=== PATIENT | female | born 1945 | race Caucasian/White ===

== ENCOUNTER 2023-01-17 05:03 | Inpatient (IN) ==
[2023-01-07 13:18] LABS: Basophils # (Auto) 0.06 K/mcL (0.00-0.30); Basophils % (Auto) 1.1 % (0.0-2.0); Eosinophils # (Auto) 0.14 K/mcL (0.00-0.70); Eosinophils % (Auto) 2.6 % (0.0-7.0); Hematocrit 41.6 % (34.1-44.9); Hemoglobin 13.8 g/dL (11.2-15.7); Lymphocytes # (Auto) 1.65 K/mcL (1.50-4.80); Lymphocytes % (Auto) 30.3 % (15.5-49.0); Mean Cell Volume 98.8 fL (80.0-100.0); Mean Corpuscular HGB Conc 33.2 g/dL (31.0-36.0); Mean Platelet Volume 10.5 fL (8.8-12.5); Monocytes # (Auto) 0.54 K/mcL (0.10-0.90); Monocytes % (Auto) 9.9 % (1.0-12.0); Neutrophils % (Auto) 55.9 % (38.0-78.0); Platelet Count 200 K/mcL (140-440); RBC 4.21 M/mcL (3.59-5.38); Red Cell Distribution Width 14.1 % (11.5-14.5); WBC 5.4 K/mcL (4.5-11.0)
[2023-01-07 13:28] LABS: Prothrombin Time 13.2 sec (11.9-14.5)
[2023-01-07 13:48] LABS: ALT/SGPT 18 U/L (<40); AST/SGOT 17 U/L (<32); Albumin 4.2 gm/dL (3.2-5.2); Albumin/Globulin Ratio 1.8 (1.0-2.3); Alkaline Phosphatase 51 U/L (39-117); Bilirubin,Total 0.3 mg/dL (0.1-1.0); Blood Urea Nitrogen 20 mg/dL (8-23); Calcium 9.5 mg/dL (8.6-10.4); Carbon Dioxide 25 mmol/L (22-30); Chloride 107 mmol/L (96-108); Globulin 2.4 gm/dL (2.2-3.7); Glomerular Filtration Rate 71; Glucose 88 mg/dL (70-105)
[2023-01-07 16:20] LABS: Appearance,Urine CLEAR (Clear); Bilirubin,Urine Negative (Negative); Color,Urine STRAW; Culture Indicated,Urine No; Glucose,Urine (UA) Negative (Negative); Ketones,Urine Negative (Negative); Leukocyte Esterase,Urine Negative /uL (Negative); Nitrate,Urine Negative (Negative); Protein,Urine Negative (Negative); Specific Gravity,Urine 1.008 (1.000-1.035); Urine Blood Negative (Negative); Urobilinogen,Urine Negative
[~2023-01-17 05:03] MED LIST: 0.9 % SODIUM CHLORIDE 250 ML IV SCH; SCOPOLAMINE 1 PATCH PATCH TOPICAL PRN
[2023-01-17] MEDS ORDERED: ceFAZolin 2 GM in DEXTROSE 5% IN WATER 50 ML IV SCH (06:00)
[2023-01-17] MEDS ORDERED: ROCURONIUM 10 MG/ML ML IV ONE (07:07)
[2023-01-17] MEDS ORDERED: LIDOCAINE 2% PF 5 ML VIAL ONE (07:07)
[2023-01-17] MEDS ORDERED: SUCCINYLCHOLINE 20 MG/ML ML IV ONE (07:07)
[2023-01-17] MEDS ORDERED: PHENYLephrine 1 MG/10 ML SYRINGE (ANEST) ONE (07:07)
[2023-01-17] MEDS ORDERED: DEXAMETHASONE 10 MG/ML VIAL ONE (07:08)
[2023-01-17] MEDS ORDERED: KETOROLAC 30 MG/ML VIAL ONE (07:08)
[2023-01-17] MEDS ORDERED: ONDANSETRON 4 MG/2 ML VIAL ONE (07:08)
[2023-01-17] MEDS ORDERED: PROPOFOL 200 MG/20 ML VIAL IV ONE (07:08)
[2023-01-17] MEDS ORDERED: CARBOXYMETHYLCELLULOSE SODIUM 1 EACH DROPER.GEL ONE (07:08)
[2023-01-17] MEDS ORDERED: TRANEXAMIC ACID 1,000 MG/10 ML VIAL ONE (09:29)
[2023-01-17] MEDS ORDERED: KETAMINE 50 MG/ML Syringe IV ONE ×3 (09:29→13:41)
[2023-01-17] MEDS ORDERED: fentaNYL 100 MCG/2 ML VIAL IV ONE (09:29)
[2023-01-17] MEDS ORDERED: ePHEDrine 50 MG/5 ML SYRINGE (ANEST) IV ONE (09:50)
[2023-01-17] MEDS ORDERED: SUGAMMADEX SODIUM 200 MG/2 ML VIAL IV ONE (09:50)
[2023-01-17] MEDS ORDERED: DEXMEDETOMIDINE HCL 200 MCG/2 ML VIAL ONE (10:20)
[2023-01-17] MEDS ORDERED: PHENYLEPHRINE 10 MG/ML VIAL ONE (11:49)
[2023-01-17] MEDS ORDERED: BUPIVACAINE 0.25% 50 ML VIAL IJ ONE (12:05)
[2023-01-17] MEDS ORDERED: THROMBIN (BOVINE) 5,000 UNIT VIAL TOPICAL ONE (12:29)
[2023-01-17] MEDS ORDERED: GELATIN SPONGE,ABSORBABLE 1 EACH SPONGE TOPICAL ONE (12:29)
[2023-01-17] MEDS ORDERED: HYDROmorphone 1 MG/ML SYRINGE ONE ×2 (12:33→15:49)
[2023-01-17] MEDS ORDERED: ceFAZolin 1 GM VIAL ONE (13:10)
[2023-01-17] MEDS ORDERED: 0.9 % SODIUM CHLORIDE 100 ML IV ONE (13:33)
[2023-01-17] MEDS ORDERED: PROMETHAZINE 25 MG/ML VIAL IV PRN (14:23)
[2023-01-17] MEDS ORDERED: ONDANSETRON 4 MG/2 ML VIAL IV PRN ×2 (14:23→14:56)
[2023-01-17] MEDS ORDERED: ONDANSETRON 4 MG ODT TABLET SL PRN (14:23)
[2023-01-17] MEDS ORDERED: ALBUTEROL SULFATE 60 PUFF INHALER IH PRN (14:26)
[2023-01-17] MEDS ORDERED: SUCRETS LOZENGE PO PRN (14:29)
[2023-01-17] MEDS ORDERED: ACETAMINOPHEN 1,000 MG/100 ML BAG IV ONE (14:56)
[2023-01-17] MEDS ORDERED: HYDROmorphone 0.5 MG/0.5 ML SYRINGE IV PRN ×2 (14:56→15:31)
[2023-01-17] MEDS ORDERED: METHOCARBAMOL 1,000 MG/10 ML VIAL IV PRN (14:56)
[2023-01-17] MEDS ORDERED: HYDROmorphone 0.5 MG/0.5 ML SYRINGE IV ONE (15:33)
[2023-01-17] MEDS ORDERED: LORazepam 2 MG/ML VIAL IV SCH (15:55)
[2023-01-17] MEDS ORDERED: LORazepam 2 MG/ML VIAL ONE (15:58)
[2023-01-17] MEDS ORDERED: ALBUTEROL SULFATE 2.5 MG/3 ML NEBULIZER NEB ONE (16:20)
[2023-01-17] MEDS: NALOXONE HCL 0.4 MG/ML VIAL IV PRN ×2 (16:28→16:36)
[2023-01-17] MEDS: LACTATED RINGERS 1,000 ML IV SCH (17:05)
[2023-01-17] MEDS: ceFAZolin 1 GM VIAL IV SCH (17:25)
[2023-01-17] MEDS: 0.9 % SODIUM CHLORIDE 10 ML SYRINGE IV SCH ×2 (19:49→20:47)
[2023-01-17] MEDS: HYDROCODONE/APAP 7.5/325MG TABLET PO PRN (19:49)
[2023-01-17] MEDS: AMITRIPTYLINE 10 MG TABLET PO SCH (20:45)
[2023-01-17] MEDS: morphine 4 MG/ML VIAL IV PRN (20:46)
[2023-01-17] MEDS: FLUTICASONE HFA 110MCG INHALER INH SCH (20:46)
[2023-01-18] MEDS: oxyCODONE IR 5 MG TABLET PO PRN ×2 (00:27→18:37)
[2023-01-18] MEDS: ceFAZolin 1 GM VIAL IV SCH (01:19)
[2023-01-18] MEDS: HYDROCODONE/APAP 7.5/325MG TABLET PO PRN ×6 (01:20→20:49)
[2023-01-18] MEDS: morphine 4 MG/ML VIAL IV PRN ×2 (02:25)
[2023-01-18] MEDS: LACTATED RINGERS 1,000 ML IV SCH ×2 (04:28→05:52)
[2023-01-18] MEDS: 0.9 % SODIUM CHLORIDE 10 ML SYRINGE IV SCH ×3 (05:52→20:29)
[2023-01-18 06:09] LABS: Hemoglobin 10.8 g/dL (11.2-15.7)
[2023-01-18 06:56] LABS: Blood Urea Nitrogen 15 mg/dL (8-23); Calcium 8.2 mg/dL (8.6-10.4); Carbon Dioxide 26 mmol/L (22-30); Chloride 103 mmol/L (96-108); Glomerular Filtration Rate 71; Glucose 130 mg/dL (70-105)
[2023-01-18] MEDS: LEVOTHYROXINE 50 MCG TABLET PO SCH (07:21)
[2023-01-18] MEDS: CITALOPRAM 20 MG TABLET PO SCH (08:28)
[2023-01-18] MEDS: FERROUS SULFATE 325 MG TABLET PO SCH (08:29)
[2023-01-18] MEDS: FOLIC ACID 1 MG TABLET PO SCH (08:29)
[2023-01-18] MEDS: FISH OIL 1,000 MG CAPSULE PO SCH (08:29)
[2023-01-18] MEDS: ASCORBIC ACID 500 MG TABLET PO SCH (08:29)
[2023-01-18] MEDS ORDERED: GLUCOSAMINE SULFATE 500 MG PO SCH (09:00)
[2023-01-18] MEDS: FLUTICASONE HFA 110MCG INHALER INH SCH ×2 (11:12→20:29)
[2023-01-18] MEDS: LISINOPRIL 10 MG TABLET PO SCH (11:13)
[2023-01-18] MEDS: CALCIUM (OYSTER SHELL) 500 MG TABLET PO SCH (11:13)
[2023-01-18] MEDS: MONTELUKAST 10 MG TABLET PO SCH (11:13)
[2023-01-18] MEDS: VITAMIN D3 25 MCG TABLET PO SCH (11:13)
[2023-01-18] MEDS: AMITRIPTYLINE 10 MG TABLET PO SCH (20:29)
[2023-01-18] MEDS ORDERED: PRAVASTATIN 40 MG TABLET PO SCH (21:00)
[2023-01-19] MEDS: HYDROCODONE/APAP 7.5/325MG TABLET PO PRN ×2 (00:48→06:23)
[2023-01-19] MEDS: 0.9 % SODIUM CHLORIDE 10 ML SYRINGE IV SCH (04:05)
[2023-01-19 05:44] LABS: Hematocrit 31.9 % (34.1-44.9); Hemoglobin 10.3 g/dL (11.2-15.7)
[2023-01-19] MEDS: LEVOTHYROXINE 50 MCG TABLET PO SCH (07:28)
[2023-01-19] MEDS: FERROUS SULFATE 325 MG TABLET PO SCH (07:32)
[2023-01-19] MEDS: CALCIUM (OYSTER SHELL) 500 MG TABLET PO SCH (07:32)
[2023-01-19] MEDS: VITAMIN D3 25 MCG TABLET PO SCH (07:32)
[2023-01-19] MEDS: MONTELUKAST 10 MG TABLET PO SCH (07:32)
[2023-01-19] MEDS: CITALOPRAM 20 MG TABLET PO SCH (07:32)
[2023-01-19] MEDS: ASCORBIC ACID 500 MG TABLET PO SCH (07:32)
[2023-01-19] MEDS: FISH OIL 1,000 MG CAPSULE PO SCH (07:33)
[2023-01-19] MEDS: FOLIC ACID 1 MG TABLET PO SCH (07:33)
[2023-01-19] MEDS: LISINOPRIL 10 MG TABLET PO SCH (07:33)
[2023-01-19] MEDS: FLUTICASONE HFA 110MCG INHALER INH SCH (07:33)
[2023-01-19] MEDS: oxyCODONE IR 5 MG TABLET PO PRN (10:03)
[2023-01-23] MEDS ORDERED: METHOTREXATE SODIUM 2.5 MG TABLET PO SCH (09:00)
== END 2023-01-19 10:35 | disposition home or self-care (01) | DRG 455 ==
LOC: MEDSUR 05:03 → ICU 15:18
PROVIDERS: ADMIT Orthopaedic Surgery Orthopaedic Surgery of the Spine; ATTEND Orthopaedic Surgery Orthopaedic Surgery of the Spine